=== PATIENT | female | born 2005 | race Caucasian/White ===

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

== ENCOUNTER 2023-02-07 13:31 | Emergency (ER) | payer BC, MEDICAID ==
[~2023-02-07] VITALS: Ht 167.6 cm; Wt 54.5 kg
[2023-02-07 13:53] VITALS: BP 116/88; PULSE 83; RESP 18; TEMP 97.5; O2SAT 99
== END 2023-02-07 17:49 | disposition left against medical advice (07) ==
LOC: ER 13:31
DX: R11.10 Vomiting, unspecified (principal); Z53.21 Procedure and treatment not carried out due to patient leaving prior to being seen by health care provider
CPT/HCPCS: 99281

== ENCOUNTER 2024-02-05 11:22 | Emergency (ER) | payer BC, MEDICAID ==
[~2024-02-05] VITALS: Ht 165.1 cm; Wt 46.4 kg
[2024-02-05 11:39] VITALS: BP 105/52; PULSE 75; RESP 18; O2SAT 100
[2024-02-05 14:17] VITALS: TEMP 98.1
== END 2024-02-05 14:18 | disposition home or self-care (01) ==
LOC: ER 11:23
DX: S22.069A Unspecified fracture of T7-T8 vertebra, initial encounter for closed fracture (principal); X58.XXXA Exposure to other specified factors, initial encounter; Y93.89 Activity, other specified; Y92.89 Other specified places as the place of occurrence of the external cause; Y99.8 Other external cause status
CPT/HCPCS: 36415; 72070; 72128; 84702; 99284

== ENCOUNTER 2024-03-23 12:06 | Emergency (ER) | payer MEDICAID ==
[~2024-03-23] VITALS: Ht 165.1 cm; Wt 47.0 kg
[2024-03-23 12:09] VITALS: BP 118/71; PULSE 88; O2SAT 100
[2024-03-23 13:28] VITALS: RESP 18
[2024-03-23] MEDS: ketorolac trometh 15mg/ml vial 15 MG/ML ML IM ONE (13:28)
[2024-03-23] MEDS ORDERED: NAPR-56 PO (13:40)
[2024-03-23 13:51] VITALS: TEMP 98.4
== END 2024-03-23 13:56 | disposition home or self-care (01) ==
LOC: ER 12:07
DX: M54.50 Low back pain, unspecified (principal); R07.81 Pleurodynia; Z79.1 Long term (current) use of non-steroidal anti-inflammatories (NSAID)
CPT/HCPCS: 71100; 96372; 99283; J1885

== ENCOUNTER 2024-04-16 19:24 | Emergency (ER) | payer BC, MEDICAID ==
[~2024-04-16] VITALS: Ht 165.1 cm; Wt 49.5 kg
[~2024-04-16 19:24] MED LIST: NAPR-56 PO
[2024-04-16 19:43] VITALS: BP 102/62; PULSE 97; RESP 15; TEMP 98.2; O2SAT 99
== END 2024-04-16 22:24 | disposition left against medical advice (07) ==
LOC: ER 19:24
DX: R56.9 Unspecified convulsions (principal); Z53.21 Procedure and treatment not carried out due to patient leaving prior to being seen by health care provider